=== PATIENT | female | born 1990 | race Caucasian/White ===

== ENCOUNTER 2024-10-22 22:16 | Emergency (ER) | payer SELFPAY ==
[~2024-10-22] VITALS: Ht 170.2 cm; Wt 65.8 kg
[2024-10-22 22:50] VITALS: TEMP 98.7
[2024-10-22] MEDS ORDERED: ONDANSETRON 4 MG TAB.RAPDIS ONE (23:11)
[2024-10-22] MEDS: ONDANSETRON 4 MG TAB.RAPDIS SL ONE (23:16)
[2024-10-22] MEDS ORDERED: KETO10TA2 PO (23:16)
[2024-10-22] MEDS ORDERED: ONDA4TAB11 PO (23:16)
[2024-10-22 23:20] LABS: PREGNANCY TEST URINE QUAL NEGATIVE (NEGATIVE)
[2024-10-22] MEDS ORDERED: KETOROLAC TROMETHAMINE INJ 30 MG/ML VIAL ONE (23:23)
[2024-10-22] MEDS: KETOROLAC TROMETHAMINE INJ 30 MG/ML VIAL IM ONE (23:29)
[2024-10-22 23:45] VITALS: BP 133/75; O2SAT 99
== END 2024-10-22 23:50 | disposition home or self-care (01) ==
LOC: ER 22:43
DX: G44.209 Tension-type headache, unspecified, not intractable (principal); R11.0 Nausea; E78.00 Pure hypercholesterolemia, unspecified; Z88.0 Allergy status to penicillin
CPT/HCPCS: 99283; 96372; 84703; J1885; Q0162